=== PATIENT | female | born 1960 | race Caucasian/White ===

== ENCOUNTER 2018-04-30 12:10 | Outpatient (CLI) | payer OTHER ==
--- NOTE | 2018-04-30 16:01 | MRI ---
NONCONTRAST MRI LUMBAR SPINE: DATE: 04/30/2018. HISTORY: Lumbar radiculopathy, low back pain with pain radiating down the right leg. COMPARISON: None available. FINDINGS: There is mild pelvocaliectasis involving each kidney. Retroperitoneal structures otherwise have a no rmal MRI appearance. There is generalized prominent heterogeneity involving the bone marrow. There are Schmorl's nodes in the superior end plates of the T12 and L1 vertebral bodies. T11-12 level: There is a minimal central disk-osteophyte complex narrowing the ventral subarachnoid space. Neural foramen are patent. T12-L1 level: There is no significant disk bulge or disk herniation. Central spinal canal and neura l foramen are patent. L1-2 level: There is no disk bulge or disk herniation. The central spinal canal and neural foramen are patent. L2-L3 level: There is minimal disk-osteophyte complex without significant narrowing of the central s dameon canal. Neural foramen are patent. L3-4 level: There is a mild disk-osteophyte complex present with mild facet degenerative changes. T here is no significant narrowing of the central spinal canal, and the neural foramen are patent. L4-5 level: There is mild disk-osteophyte complex. There are prominent facet hypertrophic changes a nd ligamentous thickening resulting in mild narrowing of the central spinal canal. Neural foramen ar e patent. L5-S1 level: There is no significant disk bulge or disk herniation. There are facet hypertrophic ch anges present at this level. The central spinal canal and neural foramina are patent. IMPRESSION: 1. Mild degenerative changes in the lumbar spine. 2. Generalized heterogeneity of the bone marrow which may be related to conversion to red marrow. POS: [facility]
== END 2018-04-30 12:11 | disposition home or self-care (01) ==
LOC: BICMRI 12:10
PROVIDERS: ATTEND Nurse Practitioner Family
DX: M47.26 Other spondylosis with radiculopathy, lumbar region (principal); D75.89 Other specified diseases of blood and blood-forming organs
CPT/HCPCS: 72148